=== PATIENT | female | born 1980 | race Caucasian/White ===

== ENCOUNTER 2017-04-30 11:08 | Inpatient (IN) | payer SELFPAY ==
[~2017-04-30] VITALS: Ht 162.6 cm; Wt 52.3 kg
[2017-04-30] VITALS (15 sets, daily range): BP systolic 114–159; BP diastolic 82–104; PULSE 114–154; RESP 15–32; TEMP 98.2–99.5; O2SAT 97–100
[2017-04-30] MEDS ORDERED: SODIUM CHLOR 0.9% 1000 ML INJ 1,000 ML IV SCH (11:24)
[2017-04-30] MEDS ORDERED: HYDROmorphone HCL PF 1 MG/ML VIAL IV PUSH ONE ×2 (11:30→15:00)
[2017-04-30] MEDS ORDERED: SODIUM CHLORIDE 0.9% FLUSH 10 ML FLUSH IV FLUSH PRN ×2 (11:30→14:15)
[2017-04-30] MEDS ORDERED: ONDANSETRON HCL 4 MG/2 ML VIAL IVP ONE (11:30)
--- NOTE | 2017-04-30 11:38 | PD ---
HPI Chief Complaint: abdominal pain and vomiting Time Seen by Provider: 11:18 Travel History International Travel<30 days: No Contact w/Intl Traveler<30days: No Traveled to known affect area: No History of Present Illness HPI This 37-year-old female is complaining of abdominal pain and vomiting. She was admitted to Hospital in [place] in March with what sounds like pancreatitis. He does not have any history of abdominal surgery. She was drinking at that time. She had stopped drinking for a while but the last couple of days and started drinking again. Last night around 3 AM she started having abdominal pain and vomiting. The pain she is having is fairly diffuse and goes to her back. She's had persistent vomiting. She says the pain is quite severe and persistent. She says she has not been eating well since she got out of the hospital in March. She has not been drinking until a couple of days ago [facility] Social History Alcohol Use: Yes Tobacco Use: No Substance Use: No Allergies-Medications (Allergen,Severity, Reaction): Coded Allergies: hydrocodone (Verified Allergy, Unknown, 04/30/17) Reported Meds & Prescriptions Reported Meds & Active Scripts Active Reported Lamotrigine 25 Mg Tab 25 Mg PO DAILY Synthroid (Levothyroxine Sodium) 50 Mcg Tab 50 Mcg PO DAILY Review of Systems General / Constitutional: No: Fever, Chills Eyes: No: Diploplia, Blurred Vision HENT: No: Headaches, Vertigo Cardiovascular: No: Chest Pain or Discomfort, Palpitations Respiratory: No: Cough, Shortness of Breath Gastrointestinal: Positive: Nausea, Vomiting, Abdominal Pain Genitourinary: No: Urgency, Frequency Musculoskeletal: No: Myalgias Neurologic: Positive: Weakness Endocrine: No: Heat Intolerance Hematologic/Lymphatic: No: Easy Bruising Physical Exam Narrative GENERAL: Thin chronically ill appearing female SKIN: Focused skin assessment warm/dry. HEAD: Atraumatic. Normocephalic. EYES: Pupils equal and round. No scleral icterus. No injection or drainage. ENT: No nasal bleeding or discharge. Mucous membranes pink and moist. NECK: Trachea midline. No JVD. CARDIOVASCULAR: Regular rate and rhythm. No murmur appreciated. RESPIRATORY: No accessory muscle use. Clear to auscultation. Breath sounds equal bilaterally. GASTROINTESTINAL: Abdomen soft, mild diffuse tenderness without guarding or rigidity nondistended. Hepatic and splenic margins not palpable. Bowel sounds are active MUSCULOSKELETAL: No obvious deformities. No clubbing. No cyanosis. No edema. NEUROLOGICAL: Awake and alert. No obvious cranial nerve deficits. Motor grossly within normal limits. Normal speech. PSYCHIATRIC: Appropriate mood and affect; insight and judgment normal. Data Data Last Documented VS Vital Signs Date Time Temp Pulse Resp B/P (MAP) Pulse Ox O2 Delivery O2 Flow Rate FiO2 04/30/17 13:09 132 20 156/99 (118) 100 Room Air 04/30/17 11:30 98.2 Orders Orders Complete Blood Count With Diff (04/30/17 11:24) Comprehensive Metabolic Panel (04/30/17 11:24) Lipase (04/30/17 11:24) Urinalysis - C+S If Indicated (04/30/17 11:24) Ct Abd/Pel W Iv Contrast(Rout) (04/30/17 11:24) Iv Access Insert/Monitor (04/30/17 11:24) Ecg Monitoring (04/30/17 11:24) Oximetry (04/30/17 11:24) Ondansetron Inj (Zofran Inj) (04/30/17 11:30) Sodium Chlor 0.9% 1000 Ml Inj (Ns 1000 M (04/30/17 11:24) Sodium Chloride 0.9% Flush (Ns Flush) (04/30/17 11:30) Hydromorphone Pf Inj (Dilaudid Pf Inj) (04/30/17 11:30) Lactic Acid (04/30/17 12:14) Beta Hydroxybutyrate (Acetone) (04/30/17 12:14) Sodium Chlor 0.9% 1000 Ml Inj (Ns 1000 M (04/30/17 12:30) Dext 5%-Nacl 0.9% 1000 Ml Inj (D5w-Ns 10 (04/30/17 12:30) Arterial Blood Gas (Abg) (04/30/17 13:07) Thiamine Inj (Thiamine Inj) (04/30/17 13:15) Iohexol 350 Inj (Omnipaque 350 Inj) (04/30/17 12:30) Ondansetron Inj (Zofran Inj) (04/30/17 13:30) Pantoprazole Inj (Protonix Inj) (04/30/17 13:30) Magnesium (Mg) (04/30/17 11:30) Drug Screen, Random Urine (04/30/17 14:09) Dext 5%-Nacl 0.9% 1000 Ml Inj (D5w-Ns 10 (04/30/17 14:15) Sodium Bicarbonate 8.4% Inj (Sodium Bica (04/30/17 14:15) Admit Order (Ed Use Only) (04/30/17 14:14) Labs Laboratory Tests Test 04/30/17 11:30 04/30/17 13:05 04/30/17 13:20 White Blood Count 13.1 TH/MM3 Red Blood Count 3.84 MIL/MM3 Hemoglobin 12.1 GM/DL Hematocrit 38.0 % Mean Corpuscular Volume 98.9 FL Mean Corpuscular Hemoglobin 31.5 PG Mean Corpuscular Hemoglobin Concent 31.8 % Red Cell Distribution Width 13.6 % Platelet Count 232 TH/MM3 Mean Platelet Volume 6.9 FL Neutrophils (%) (Auto) 86.6 % Lymphocytes (%) (Auto) 4.1 % Monocytes (%) (Auto) 7.7 % Eosinophils (%) (Auto) 0.1 % Basophils (%) (Auto) 1.5 % Neutrophils # (Auto) 11.4 TH/MM3 Lymphocytes # (Auto) 0.5 TH/MM3 Monocytes # (Auto) 1.0 TH/MM3 Eosinophils # (Auto) 0.0 TH/MM3 Basophils # (Auto) 0.2 TH/MM3 CBC Comment DIFF FINAL Differential Comment Urine Collection Type CLEAN CATCH Urine Color YELLOW Urine Turbidity CLEAR Urine pH 5.5 Urine Specific [place] 1.016 Urine Protein 30 mg/dL Urine Glucose (UA) NEG mg/dL Urine Ketones 80 OR GREATER mg/dL Urine Occult Blood TRACE Urine Nitrite NEG Urine Bilirubin NEG Urine Leukocyte Esterase NEG Urine RBC 0-3 /hpf Urine WBC 0-2 /hpf Urine Squamous Epithelial Cells 6-8 /hpf Urine Hyaline Casts 15-19 /lpf Microscopic Urinalysis Comment CULT NOT INDICATED Urine Collection Time 11:30 Blood Urea Nitrogen 5 MG/DL Creatinine 0.68 MG/DL Random Glucose 86 MG/DL Total Protein 8.9 GM/DL Albumin 4.3 GM/DL Calcium Level 9.2 MG/DL Magnesium Level 1.5 MG/DL Alkaline Phosphatase 150 U/L Aspartate Amino Transf (AST/SGOT) 285 U/L Alanine Aminotransferase (ALT/SGPT) 100 U/L Total Bilirubin 1.2 MG/DL Sodium Level 129 MEQ/L Potassium Level 3.7 MEQ/L Chloride Level 91 MEQ/L Carbon Dioxide Level 7.3 MEQ/L Anion Gap 31 MEQ/L Estimat Glomerular Filtration Rate 97 ML/MIN Lipase 327 U/L Urine Barbiturates Screen NEG Urine Amphetamines Screen NEG Urine Benzodiazepines Screen NEG Urine Cocaine Screen NEG Urine Cannabinoids Screen NEG B-Hydroxybutyrate 8.55 MMOL/L Lactic Acid Level 6.2 mmol/L Blood Gas Puncture Site LT RADIAL Blood Gas Patient Temperature 98.6 Blood Gas HCO3 6 mmol/L Blood Gas Base Excess -22.1 mmol/L Blood Gas Oxygen Saturation 94 % Arterial Blood pH 7.08 Arterial Blood Partial Pressure CO2 22 mmHG Arterial Blood Partial Pressure O2 118 mmHG Arterial Blood Oxygen Content 13.1 Vol % Arterial Blood Carboxyhemoglobin 1.4 % Arterial Blood Methemoglobin 1.4 % Blood Gas Hemoglobin 9.8 G/DL Oxygen Delivery Device ROOM AIR Blood Gas Inspired Oxygen 21 % [facility] Medical Decision Making Medical Screen Exam Complete: Yes Emergency Medical Condition: Yes Medical Record Reviewed: Yes Differential Diagnosis Differential includes pancreatitis, gastritis, gastroenteritis Narrative Course Patient has been given IV fluids and Zofran. Of note her anion gap was noted to be 31. Her beta hydroxybutyrate is 8.55. CT scan of the abdomen and pelvis does not show evidence of pancreatitis. She has steatosis of the liver. Her AST is elevated, lipase is normal. She has had intermittent vomiting in the ER. She has been given thiamine and D5 saline. This may represent alcoholic starvation ketosis she has been started on dextrose. Blood gas shows a pH of 7.07. She'll be given intravenous sodium bicarbonate. She will be admitted to intensive care unit Diagnosis Primary Impression: Alcoholic ketoacidosis Admitting Information Admitting Physician Requests: Admit Derrek Dougherty MD Apr 30, 2017 11:38
[2017-04-30 11:53] LABS: BLOOD, URINE TRACE (NEG); GLUCOSE,URINE NEG (NEG); KETONE, URINE 80 OR GREATER mg/dL (NEG); NITRITE,URINE NEG (NEG); PH, URINE 5.5 (5.0-8.5)
[2017-04-30 11:57] LABS: AUTOMATED NEUTROPHIL # 11.4 TH/MM3 (1.8-7.7); BASOPHIL # 0.2 TH/MM3 (0-0.2); BASOPHIL % 1.5 % (0.0-2.0); EOSINOPHIL % 0.1 % (0.0-4.0); LYMPH % 4.1 % (9.0-44.0); LYMPHOCYTE # 0.5 TH/MM3 (1.0-4.8); MEAN CELL VOLUME 98.9 FL (80.0-100.0); MEAN CORPUSCULAR HEMOGLOBIN 31.5 PG (27.0-34.0); MEAN CORPUSCULAR HGB CONC 31.8 % (32.0-36.0); MONO % 7.7 % (0.0-8.0); NEUT % 86.6 % (16.0-70.0); PLATELET COUNT 232 TH/MM3 (150-450); RED BLOOD COUNT 3.84 MIL/MM3 (4.00-5.30); RED CELL DISTRIBUTION WIDTH 13.6 % (11.6-17.2); WHITE BLOOD COUNT 13.1 TH/MM3 (4.0-11.0)
[2017-04-30 11:58] LABS: METHOD OF COLLECTION CLEAN CATCH; URINE COLOR YELLOW (YELLW/STRAW)
[2017-04-30 11:59] LABS: COMMENT (UR) CULT NOT INDICATED; CULTURE IF INDICATED CULT NOT INDICATED; HYALINE CAST, URINE 15-19 /lpf (RARE); RBC, URINE 0-3 /hpf (0-3); WBC, URINE 0-2 /hpf (0-5)
[2017-04-30 12:03] LABS: HEMO FLAGS DIFF FINAL
[2017-04-30 12:07] LABS: CHLORIDE 91 MEQ/L (98-107); POTASSIUM 3.7 MEQ/L (3.5-5.1); SODIUM (NA) 129 MEQ/L (136-145)
[2017-04-30 12:11] LABS: ANION GAP 31 MEQ/L (5-15); BICARBONATE 7.3 MEQ/L (21.0-32.0); BLOOD UREA NITROGEN 5 MG/DL (7-18)
[2017-04-30] MEDS ORDERED: LEVO.05 PO (12:13)
[2017-04-30] MEDS ORDERED: LAMO25TA PO (12:13)
[2017-04-30 12:14] LABS: ALT (GPT) 100 U/L (10-53); AST (GOT) 285 U/L (15-37); GLOMERULAR FILTRATION RATE 97 ML/MIN (>89)
[2017-04-30 12:16] LABS: TOTAL BILIRUBIN ADULT 1.2 MG/DL (0.2-1.0)
[2017-04-30 12:17] LABS: ALKALINE PHOSPHATASE 150 U/L (45-117)
[2017-04-30] MEDS ORDERED: IOHEXOL 350 MG/ML 10 ML VIAL (for RAD DIAG) IVCONTRAST ONE (12:30)
[2017-04-30] MEDS ORDERED: DEXT 5%-NACL 0.9% 1000 ML INJ 1,000 ML IV ONE ×3 (12:30→17:15)
[2017-04-30] MEDS ORDERED: SODIUM CHLOR 0.9% 1000 ML INJ 1,000 ML IV ONE (12:30)
--- NOTE | 2017-04-30 13:04 | RADRPT ---
EXAM DATE/TIME: 04/30/2017 12:35 [place] COMPARISON: No previous studies available for comparison. INDICATIONS : Abdominal pain and vomiting. IV CONTRAST: 71 cc Omnipaque 350 (iohexol) IV ORAL CONTRAST: No oral contrast ingested. RADIATION DOSE: 4.53 CTDIvol (mGy) MEDICAL HISTORY : Alcohol dependance. SURGICAL HISTORY : None. ENCOUNTER: Initial ACUITY: 1 day PAIN SCALE: 0/10 LOCATION: Bilateral middle abdominal and back. TECHNIQUE: Volumetric scanning of the abdomen and pelvis was performed. Using automated exposure control and ad justment of the mA and/or kV according to patient size, radiation dose was kept as low as reasonably achievable to obtain optimal diagnostic quality images. DICOM format image data is available electro nically for review and comparison. FINDINGS: LOWER LUNGS: The visualized lower lungs are clear. LIVER: Profound diffusely decreased hepatic density consistent with hepatic steatosis. Gallbladder is modera tely distended and unremarkable by CT. SPLEEN: Normal size without lesion. PANCREAS: Within normal limits. KIDNEYS: Normal in size and shape. Subcentimeter hypodense cystic lesion in the inferior pole of the right kid misty is too small to fully characterize. Otherwise, no significant mass, stone, or hydronephrosis. ADRENAL GLANDS: Within normal limits. VASCULAR: There is no aortic aneurysm. BOWEL/MESENTERY: The stomach, small bowel, and colon demonstrate no acute abnormality. Appendix is not directly visua lized. However, there is no significant pericecal inflammatory change or adenopathy. There is no free intraperitoneal air or fluid. ABDOMINAL WALL: Within normal limits. RETROPERITONEUM: There is no lymphadenopathy. BLADDER: No wall thickening or mass. REPRODUCTIVE: Within normal limits. INGUINAL: There is no lymphadenopathy or hernia. MUSCULOSKELETAL: Within normal limits for patient age. CONCLUSION: 1. Appendix is not directly visualized,. However, there are no secondary findings for appendicitis. 2. Pancreas is unremarkable by CT. However, normal CT appearance of the pancreas does not exclude mcdowell creatitis. 3. Profound diffusely decreased hepatic density consistent with history of alcohol abuse/hepatic stea tosis. Miguel Ibrahim MD on April 30, 2017 at 12:58 Board Certified Radiologist. This report was verified electronically.
[2017-04-30] MEDS ORDERED: THIAMINE INJ 100 MG in SODIUM CHLORIDE 0.9% INJ 100 ML IV ONE (13:15)
[2017-04-30 13:27] LABS: BLOOD GAS BASE EXCESS -22.1 mmol/L (-2-2); BLOOD GAS CARBOXYHEMOGLOBIN 1.4 % (0-4); BLOOD GAS HCO3 6 mmol/L (22-26); BLOOD GAS METHEMOGLOBIN 1.4 % (0-2); BLOOD GAS O2 HGB SATURATION 94 % (90-100); BLOOD GAS OXYGEN CONTENT 13.1 Vol % (12.0-20.0); BLOOD GAS PCO2 22 mmHG (38-42); BLOOD GAS PO2 118 mmHG (61-120); BLOOD GAS TOTAL HGB 9.8 G/DL (12.0-16.0); TEMP CORR TO 98.6
[2017-04-30 13:28] LABS: CRITICAL VALUE YES; DRAW SITE LT RADIAL; FIO2 21 %; NUMBER OF ARTERIAL PUNCTURES 1; OXYGEN DEVICE ROOM AIR; STAT YES; ULNAR PULSE PRESENT
[2017-04-30] MEDS ORDERED: ONDANSETRON HCL 4 MG/2 ML VIAL IV PUSH ONE (13:30)
[2017-04-30] MEDS ORDERED: PANTOPRAZOLE SODIUM 40 MG VIAL IV PUSH ONE (13:30)
[2017-04-30 14:04] LABS: MAGNESIUM 1.5 MG/DL (1.5-2.5)
[2017-04-30] MEDS ORDERED: LACTULOSE SYRUP 20 GM/30 ML CUP PO PRN (14:15)
[2017-04-30] MEDS ORDERED: MISCELLANEOUS NURSING INFORMATION XX SCH (14:15)
[2017-04-30] MEDS ORDERED: LORazepam 2 MG/ML VIAL IV PUSH PRN (14:15)
[2017-04-30] MEDS ORDERED: BISACODYL 10 MG SUPP RECTAL PRN (14:15)
[2017-04-30] MEDS ORDERED: DOCUSATE SODIUM 50 MG/SENNA 8.6 MG TAB PO PRN (14:15)
[2017-04-30] MEDS ORDERED: MAGNESIUM HYDROXIDE SUSP 30 ML CUP PO PRN (14:15)
[2017-04-30] MEDS ORDERED: SENNOSIDES 8.6 MG TAB PO PRN (14:15)
[2017-04-30] MEDS ORDERED: SODIUM BICARBONATE 8.4% INJ 50 MEQ/50 ML SYR IV PUSH ONE (14:15)
[2017-04-30] MEDS ORDERED: RESP: ALBUTEROL 2.5 MG/IPRATROPIUM 0.5 MG NEB (PRN) INH (14:15)
[2017-04-30] MEDS ORDERED: CHLORHEXIDINE GLUCONATE 2 % 1 PACK (2 CLOTHS) TOP PRN (14:15)
[2017-04-30] MEDS ORDERED: PROCHLORPERAZINE INJ 10 MG/2 ML VIAL IV PUSH ONE (14:30)
[2017-04-30] MEDS ORDERED: SODIUM BICARBONATE 8.4% SOLN 50 MEQ/50 ML VIAL IV ONE (15:15)
[2017-04-30] MEDS: HEPARIN SODIUM - SQ 10,000 UNITS/ML VIAL SQ SCH (15:36)
[2017-04-30 16:09] LABS: BLOOD GAS BASE EXCESS -9.9 mmol/L (-2-2); BLOOD GAS CARBOXYHEMOGLOBIN 1.9 % (0-4); BLOOD GAS HCO3 15 mmol/L (22-26); BLOOD GAS METHEMOGLOBIN 1.5 % (0-2); BLOOD GAS O2 HGB SATURATION 94 % (90-100); BLOOD GAS OXYGEN CONTENT 13.2 Vol % (12.0-20.0); BLOOD GAS PCO2 30 mmHg (38-42); BLOOD GAS PO2 95 mmHg (61-120); BLOOD GAS TOTAL HGB 9.9 G/DL (12.0-16.0)
[2017-04-30 16:10] LABS: CRITICAL VALUE YES; DRAW SITE LT RADIAL; FIO2 21 %; NUMBER OF ARTERIAL PUNCTURES 1; OXYGEN DEVICE RA; STAT NO; ULNAR PULSE PRESENT
[2017-04-30] MEDS: ONDANSETRON HCL 4 MG/2 ML VIAL IV PUSH PRN (17:03)
--- NOTE | 2017-04-30 17:06 | HHI.HP ---
HPI Service Critical Care Medicine Primary Care Physician No Primary Care Physician Admission Diagnosis METABOLIC ACIDOSIS Diagnosis: Travel History International Travel<30 Days: No Contact w/Intl Traveler <30 Da: No Traveled to Known Affected Are: No History of Present Illness History of Present Illness HPI This 37-year-old female presented with complaints of abdominal pain, nausea and vomiting which started at 3 AM this morning for which she was brought to the ER. Patient has a history of alcohol abuse and was admitted to Hospital in [place] in March and was told she had pancreatitis. She does not have any history of abdominal surgery. She had stopped drinking for a while but the last couple of days started drinking again. This morning around 3 AM she started having abdominal pain and vomiting. The pain she is having is fairly diffuse and goes to her back. She's had persistent vomiting. She says the pain is quite severe and persistent. She says she has not been eating well since she got out of the hospital in March. She has not been drinking until a couple of days ago. Patient was evaluated in the ER and was noted to be tachycardic with heart rate in the 130s with normal blood pressure. She underwent the CT of her abdomen pelvis which was unremarkable except for steatosis. She did have significant metabolic acidosis and positive ketones in the urine as well as elevated lactic acid. She was accepted for admission to the ICU by critical care medicine service in view of severe metabolic acidosis with ABG revealing pH of 7.08 PCO2 22 PO2 118. She was given 1 L when S bolus followed by D5 and S2 liters and 2 A of bicarbonate in the ER after discussion with ER physician. I evaluated the patient following her arrival to the ICU. She was resting in bed at the time and did not appear to be in any severe distress. History PFSH Social History Alcohol Use: Yes Tobacco Use: No Substance Use: No Allergies-Medications Allergies-Medications (Allergen,Severity, Reaction): Coded Allergies: hydrocodone (Verified Allergy, Unknown, 04/30/17) Reported Meds & Prescriptions Reported Meds & Active Scripts Active Reported Lamotrigine 25 Mg Tab 25 Mg PO DAILY Synthroid (Levothyroxine Sodium) 50 Mcg Tab 50 Mcg PO DAILY ROS Review of Systems General / Constitutional: No: Fever, Chills Eyes: No: Diploplia, Blurred Vision HENT: No: Headaches, Vertigo Cardiovascular: No: Chest Pain or Discomfort, Palpitations Respiratory: No: Cough, Shortness of Breath Gastrointestinal: Positive: Nausea, Vomiting, Abdominal Pain. Denies any melena or rectal bleeding or hematemesis. Genitourinary: No: Urgency, Frequency Musculoskeletal: No: Myalgias Neurologic: Positive: Weakness Endocrine: No: Heat Intolerance Hematologic/Lymphatic: No: Easy Bruising Physical Exam Vital Signs Vital Signs Date Time Temp Pulse Resp B/P (MAP) Pulse Ox O2 Delivery O2 Flow Rate FiO2 04/30/17 16:05 120 16 144/96 (112) 04/30/17 16:05 120 04/30/17 16:03 120 04/30/17 16:03 132 20 147/102 (117) 04/30/17 16:03 99.0 120 18 147/102 (117) 97 04/30/17 16:03 132 04/30/17 15:59 120 18 151/99 (116) 98 04/30/17 15:20 129 18 157/104 (121) 100 Room Air 04/30/17 14:30 129 20 159/101 (120) 99 Room Air 04/30/17 13:09 132 20 156/99 (118) 100 Room Air 04/30/17 12:25 133 20 140/90 (107) 98 Room Air 04/30/17 11:30 98 Room Air 04/30/17 11:30 98.2 140 20 153/90 (111) 99 Physical Exam Narrative GENERAL: Thin chronically ill appearing female SKIN: Focused skin assessment warm/dry. HEAD: Atraumatic. Normocephalic. EYES: Pupils equal and round. No scleral icterus. No injection or drainage. ENT: No nasal bleeding or discharge. Mucous membranes pink and moist. NECK: Trachea midline. No JVD. CARDIOVASCULAR: Regular rate and rhythm. No murmur appreciated. RESPIRATORY: No accessory muscle use. Clear to auscultation. Breath sounds equal bilaterally. GASTROINTESTINAL: Abdomen soft, mild diffuse tenderness without guarding or rigidity nondistended. Hepatic and splenic margins not palpable. Bowel sounds are active MUSCULOSKELETAL: No obvious deformities. No clubbing. No cyanosis. No edema. NEUROLOGICAL: Awake and alert. No obvious cranial nerve deficits. Motor grossly within normal limits. Normal speech. PSYCHIATRIC: Appropriate mood and affect; insight and judgment normal. Laboratory Laboratory Tests Test 04/30/17 11:30 04/30/17 13:05 04/30/17 13:20 04/30/17 16:03 White Blood Count 13.1 Red Blood Count 3.84 Hemoglobin 12.1 Hematocrit 38.0 Mean Corpuscular Volume 98.9 Mean Corpuscular Hemoglobin 31.5 Mean Corpuscular Hemoglobin Concent 31.8 Red Cell Distribution Width 13.6 Platelet Count 232 Mean Platelet Volume 6.9 Neutrophils (%) (Auto) 86.6 Lymphocytes (%) (Auto) 4.1 Monocytes (%) (Auto) 7.7 Eosinophils (%) (Auto) 0.1 Basophils (%) (Auto) 1.5 Neutrophils # (Auto) 11.4 Lymphocytes # (Auto) 0.5 Monocytes # (Auto) 1.0 Eosinophils # (Auto) 0.0 Basophils # (Auto) 0.2 CBC Comment DIFF FINAL Differential Comment Urine Collection Type CLEAN CATCH Urine Color YELLOW Urine Turbidity CLEAR Urine pH 5.5 Urine Specific [place] 1.016 Urine Protein 30 Urine Glucose (UA) NEG Urine Ketones 80 OR GREATER Urine Occult Blood TRACE Urine Nitrite NEG Urine Bilirubin NEG Urine Leukocyte Esterase NEG Urine RBC 0-3 Urine WBC 0-2 Urine Squamous Epithelial Cells 6-8 Urine Hyaline Casts 15-19 Microscopic Urinalysis Comment CULT NOT INDICATED Urine Collection Time 11:30 Blood Urea Nitrogen 5 Creatinine 0.68 Random Glucose 86 Total Protein 8.9 Albumin 4.3 Calcium Level 9.2 Magnesium Level 1.5 Alkaline Phosphatase 150 Aspartate Amino Transf (AST/SGOT) 285 Alanine Aminotransferase (ALT/SGPT) 100 Total Bilirubin 1.2 Sodium Level 129 Potassium Level 3.7 Chloride Level 91 Carbon Dioxide Level 7.3 Anion Gap 31 Estimat Glomerular Filtration Rate 97 Lipase 327 Urine Opiates Screen NEG Urine Barbiturates Screen NEG Urine Amphetamines Screen NEG Urine Benzodiazepines Screen NEG Urine Cocaine Screen NEG Urine Cannabinoids Screen NEG B-Hydroxybutyrate 8.55 Lactic Acid Level 6.2 Blood Gas Puncture Site LT RADIAL LT RADIAL Blood Gas Patient Temperature 98.6 37.0 Blood Gas HCO3 6 15 Blood Gas Base Excess -22.1 -9.9 Blood Gas Oxygen Saturation 94 94 Arterial Blood pH 7.08 7.32 Arterial Blood Partial Pressure CO2 22 30 Arterial Blood Partial Pressure O2 118 95 Arterial Blood Oxygen Content 13.1 13.2 Arterial Blood Carboxyhemoglobin 1.4 1.9 Arterial Blood Methemoglobin 1.4 1.5 Blood Gas Hemoglobin 9.8 9.9 Oxygen Delivery Device ROOM AIR RA Blood Gas Inspired Oxygen 21 21 Result Diagram: 04/30/17 1130 04/30/17 1130 Imaging Laboratory Tests Test 04/30/17 11:30 04/30/17 13:05 04/30/17 13:20 04/30/17 16:03 White Blood Count 13.1 TH/MM3 Red Blood Count 3.84 MIL/MM3 Hemoglobin 12.1 GM/DL Hematocrit 38.0 % Mean Corpuscular Volume 98.9 FL Mean Corpuscular Hemoglobin 31.5 PG Mean Corpuscular Hemoglobin Concent 31.8 % Red Cell Distribution Width 13.6 % Platelet Count 232 TH/MM3 Mean Platelet Volume 6.9 FL Neutrophils (%) (Auto) 86.6 % Lymphocytes (%) (Auto) 4.1 % Monocytes (%) (Auto) 7.7 % Eosinophils (%) (Auto) 0.1 % Basophils (%) (Auto) 1.5 % Neutrophils # (Auto) 11.4 TH/MM3 Lymphocytes # (Auto) 0.5 TH/MM3 Monocytes # (Auto) 1.0 TH/MM3 Eosinophils # (Auto) 0.0 TH/MM3 Basophils # (Auto) 0.2 TH/MM3 CBC Comment DIFF FINAL Differential Comment Urine Collection Type CLEAN CATCH Urine Color YELLOW Urine Turbidity CLEAR Urine pH 5.5 Urine Specific [place] 1.016 Urine Protein 30 mg/dL Urine Glucose (UA) NEG mg/dL Urine Ketones 80 OR GREATER mg/dL Urine Occult Blood TRACE Urine Nitrite NEG Urine Bilirubin NEG Urine Leukocyte Esterase NEG Urine RBC 0-3 /hpf Urine WBC 0-2 /hpf Urine Squamous Epithelial Cells 6-8 /hpf Urine Hyaline Casts 15-19 /lpf Microscopic Urinalysis Comment CULT NOT INDICATED Urine Collection Time 11:30 Blood Urea Nitrogen 5 MG/DL Creatinine 0.68 MG/DL Random Glucose 86 MG/DL Total Protein 8.9 GM/DL Albumin 4.3 GM/DL Calcium Level 9.2 MG/DL Magnesium Level 1.5 MG/DL Alkaline Phosphatase 150 U/L Aspartate Amino Transf (AST/SGOT) 285 U/L Alanine Aminotransferase (ALT/SGPT) 100 U/L Total Bilirubin 1.2 MG/DL Sodium Level 129 MEQ/L Potassium Level 3.7 MEQ/L Chloride Level 91 MEQ/L Carbon Dioxide Level 7.3 MEQ/L Anion Gap 31 MEQ/L Estimat Glomerular Filtration Rate 97 ML/MIN Lipase 327 U/L Urine Opiates Screen NEG Urine Barbiturates Screen NEG Urine Amphetamines Screen NEG Urine Benzodiazepines Screen NEG Urine Cocaine Screen NEG Urine Cannabinoids Screen NEG B-Hydroxybutyrate 8.55 MMOL/L Lactic Acid Level 6.2 mmol/L Blood Gas Puncture Site LT RADIAL LT RADIAL Blood Gas Patient Temperature 98.6 37.0 Blood Gas HCO3 6 mmol/L 15 mmol/L Blood Gas Base Excess -22.1 mmol/L -9.9 mmol/L Blood Gas Oxygen Saturation 94 % 94 % Arterial Blood pH 7.08 7.32 Arterial Blood Partial Pressure CO2 22 mmHG 30 mmHg Arterial Blood Partial Pressure O2 118 mmHG 95 mmHg Arterial Blood Oxygen Content 13.1 Vol % 13.2 Vol % Arterial Blood Carboxyhemoglobin 1.4 % 1.9 % Arterial Blood Methemoglobin 1.4 % 1.5 % Blood Gas Hemoglobin 9.8 G/DL 9.9 G/DL Oxygen Delivery Device ROOM AIR RA Blood Gas Inspired Oxygen 21 % 21 % Caprini VTE Risk Assessment Caprini VTE Risk Assessment: No/Low Risk (score <= 1) Caprini Risk Assessment Model Point Value = 1 Point Value = 2 Point Value = 3 Point Value = 5 Age 41-60 Minor surgery BMI > 25 kg/m2 Swollen legs Varicose veins or History of unexplained or recurrent spontaneous Oral contraceptives or hormone replacement Sepsis (< 1 month) Serious lung disease, including pneumonia (< 1 month) Abnormal pulmonary function Acute myocardial infarction Congestive heart failure (< 1 month) History of inflammatory bowel disease Medical patient at bed rest Age 61-74 Arthroscopic surgery Major open surgery (> 45 min) Laparoscopic surgery (> 45 min) Malignancy Confined to bed (> 72 hours) Immobilizing plaster cast Central venous access Age >= 75 History of VTE Family history of VTE Factor V Leiden Prothrombin [id number] Lupus anticoagulant Anticardiolipin antibodies Elevated serum homocysteine Heparin-induced thrombocytopenia Other congenital or acquired thrombophilia Stroke (< 1 month) Elective arthroplasty Hip, pelvis, or leg fracture Acute spinal cord injury (< 1 month) Prophylaxis Regimen Total Risk Factor Score Risk Level Prophylaxis Regimen 0-1 Low Early ambulation 2 Moderate Order ONE of the following: *Sequential Compression Device (SCD) *Heparin 5000 units SQ BID 3-4 Higher Order ONE of the following medications: *Heparin 5000 units SQ TID *Enoxaparin/Lovenox 40 mg SQ daily (WT < 150 kg, CrCl > 30 mL/min) *Enoxaparin/Lovenox 30 mg SQ daily (WT < 150 kg, CrCl > 10-29 mL/min) *Enoxaparin/Lovenox 30 mg SQ BID (WT < 150 kg, CrCl > 30 mL/min) AND/OR *Sequential Compression Device (SCD) 5 or more Highest Order ONE of the following medications: *Heparin 5000 units SQ TID (Preferred with Epidurals) *Enoxaparin/Lovenox 40 mg SQ daily (WT < 150 kg, CrCl > 30 mL/min) *Enoxaparin/Lovenox 30 mg SQ daily (WT < 150 kg, CrCl > 10-29 mL/min) *Enoxaparin/Lovenox 30 mg SQ BID (WT < 150 kg, CrCl > 30 mL/min) AND *Sequential Compression Device (SCD) Assessment and Plan Assessment and Plan 37-year-old female with: Metabolic acidosis with ketoacidosis secondary to starvation/alcohol as well as lactic acidosis Dehydration Alcohol-induced gastritis Elevated LFTs with alcoholic hepatitis Hyponatremia Plan: Neuro: Awake and alert. Follow neuro status. Avoid sedatives and narcotics. Continue by mouth thiamine. Cardiovascular: Receive 3 L fluid bolus earlier. Continue IV fluids. Watch for hypotension. Pulmonary: Supplemental O2 as needed. GI/liver: Advance by mouth diet as tolerated. Zofran when necessary for nausea and vomiting. CT abdomen pelvis did not reveal any evidence of pancreatitis. GI consulted for elevated LFTs and nausea vomiting abdominal pain. Renal/: IV hydration, strict intake output, monitor and replete electrolytes, follow BUN/creatinine. Repeat ABG much improved with pH 7.32 PCO2 29.7 PO2 95.4 with bicarbonate 14.9. ID: No antibiotics at this time. Heme: Follow CBC Prophylaxis: PPI/SCDs. Subcutaneous heparin. Early ambulation. We'll continue to follow for critical care. Fernando Helms MD Apr 30, 2017 17:05
[2017-04-30] MEDS: D5-1/2 NS + KCL 20 MEQ INJ 1,000 ML IV SCH ×3 (17:07→20:18)
[2017-04-30] MEDS: SODIUM CHLORIDE 0.9% FLUSH 10 ML FLUSH IV FLUSH SCH (19:37)
[2017-04-30 21:31] LABS: POTASSIUM 3.4 MEQ/L (3.5-5.1)
[2017-04-30 21:40] LABS: BICARBONATE 21.1 MEQ/L (21.0-32.0)
[2017-04-30 22:51] LABS: CALCIUM-PROTEIN CORRECTED 7.2 MG/DL (8.5-10.1)
[2017-05-01] VITALS (14 sets, daily range): BP systolic 108–128; BP diastolic 68–92; PULSE 86–112; RESP 16–23; TEMP 97.8–99.7; O2SAT 98–100
[2017-05-01] MEDS: D5-1/2 NS + KCL 20 MEQ INJ 1,000 ML IV SCH ×3 (01:00→20:20)
[2017-05-01] MEDS: CHLORHEXIDINE GLUCONATE 2 % 1 PACK (2 CLOTHS) TOP SCH (03:02)
[2017-05-01] MEDS: HEPARIN SODIUM - SQ 10,000 UNITS/ML VIAL SQ SCH ×2 (03:02→13:22)
[2017-05-01 05:54] LABS: AUTOMATED NEUTROPHIL # 5.8 TH/MM3 (1.8-7.7); BASOPHIL # 0.2 TH/MM3 (0-0.2); BASOPHIL % 2.1 % (0.0-2.0); EOSINOPHIL % 0.2 % (0.0-4.0); HEMATOCRIT 29.9 % (35.0-46.0); HEMO FLAGS DIFF FINAL; LYMPH % 11.5 % (9.0-44.0); LYMPHOCYTE # 0.9 TH/MM3 (1.0-4.8); MEAN CELL VOLUME 95.4 FL (80.0-100.0); MEAN CORPUSCULAR HGB CONC 32.5 % (32.0-36.0); MONO % 8.7 % (0.0-8.0); NEUT % 77.5 % (16.0-70.0); PLATELET COUNT 156 TH/MM3 (150-450); RED BLOOD COUNT 3.14 MIL/MM3 (4.00-5.30); RED CELL DISTRIBUTION WIDTH 13.1 % (11.6-17.2); WHITE BLOOD COUNT 7.6 TH/MM3 (4.0-11.0)
[2017-05-01 06:07] LABS: CHLORIDE 100 MEQ/L (98-107); POTASSIUM 3.2 MEQ/L (3.5-5.1); SODIUM (NA) 135 MEQ/L (136-145)
[2017-05-01 06:26] LABS: ALKALINE PHOSPHATASE 98 U/L (45-117); ALT (GPT) 66 U/L (10-53); ANION GAP 9 MEQ/L (5-15); AST (GOT) 145 U/L (15-37); BLOOD UREA NITROGEN 1 MG/DL (7-18); GLOMERULAR FILTRATION RATE 130 ML/MIN (>89); TOTAL BILIRUBIN ADULT 0.8 MG/DL (0.2-1.0)
[2017-05-01] MEDS ORDERED: POTASSIUM PHOSPHATE MONOBASIC 500 MG TAB PO PRN (07:00)
[2017-05-01] MEDS ORDERED: POTASSIUM CHLOR 20 MEQ PREMIX 100 ML IV PRN ×2 (07:00)
[2017-05-01] MEDS ORDERED: MAGNESIUM SULFATE INJ 4 GM in SODIUM CHLORIDE 0.9% INJ 92 ML IV PRN (07:00)
[2017-05-01] MEDS ORDERED: SODIUM CHLOR 0.9% IV ONE (07:00)
[2017-05-01] MEDS ORDERED: SODIUM PHOSPHATE INJ 30 MMOL in SODIUM CHLOR 0.9% 250 ML INJ 240 ML IV PRN (07:00)
[2017-05-01] MEDS ORDERED: MAGNESIUM OXIDE 400 MG TAB PO PRN (07:00)
[2017-05-01] MEDS ORDERED: POTASSIUM PHOSPHATE INJ 30 MMOL in SODIUM CHLOR 0.9% 250 ML INJ 250 ML IV PRN (07:00)
[2017-05-01] MEDS ORDERED: POTASSIUM PHOSPHATE IV ONE (07:00)
[2017-05-01] MEDS ORDERED: POTASSIUM PHOSPHATE MONOBASIC 500 MG TAB PO/TUBE PRN (07:00)
[2017-05-01] MEDS ORDERED: POTASSIUM CHLOR 40 MEQ PREMIX 100 ML IV PRN ×2 (07:00)
[2017-05-01] MEDS ORDERED: MAGNESIUM SULFATE INJ 2 GM in SODIUM CHLORIDE 0.9% INJ 96 ML IV PRN (07:00)
[2017-05-01] MEDS ORDERED: POTASSIUM CHLORIDE 25 MEQ EFFERVESCENT TAB PO PRN (07:00)
--- NOTE | 2017-05-01 07:00 | HHI.CCPN ---
Subjective Remarks/Hospital Course 04/30: This 37-year-old female presented with complaints of abdominal pain, nausea and vomiting which started at 3 AM this morning for which she was brought to the ER. Patient has a history of alcohol abuse and was admitted to Hospital in [place] in March and was told she had pancreatitis. She does not have any history of abdominal surgery. She had stopped drinking for a while but the last couple of days started drinking again. This morning around 3 AM she started having abdominal pain and vomiting. The pain she is having is fairly diffuse and goes to her back. She's had persistent vomiting. She says the pain is quite severe and persistent. She says she has not been eating well since she got out of the hospital in March. She has not been drinking until a couple of days ago. Patient was evaluated in the ER and was noted to be tachycardic with heart rate in the 130s with normal blood pressure. She underwent the CT of her abdomen pelvis which was unremarkable except for steatosis. She did have significant metabolic acidosis and positive ketones in the urine as well as elevated lactic acid. She was accepted for admission to the ICU by critical care medicine service in view of severe metabolic acidosis with ABG revealing pH of 7.08 PCO2 22 PO2 118. She was given 1 L when S bolus followed by D5 and S2 liters and 2 A of bicarbonate in the ER after discussion with ER physician. I evaluated the patient following her arrival to the ICU. She was resting in bed at the time and did not appear to be in any severe distress. 05/01: Had some nausea overnight. Has not had any by mouth intake yet. Heart rate in the 100s. No hypotension. No melena or rectal bleeding overnight. TSH came back low hence ordered free T3 and T4 to evaluate for hyperthyroidism. Has had good urine output overnight per [employer]. She is resting in bed comfortably at the time of my evaluation not in any acute distress. Her glucose was 300 last night however this was after 1 L D5NS and I do not think she is diabetic. Metabolic acidosis seems to have resolved with D5 suggesting alcoholic/starvation ketoacidosis. Objective Vital Signs Date Time Temp Pulse Resp B/P (MAP) Pulse Ox O2 Delivery O2 Flow Rate FiO2 05/01/17 06:00 96 23 128/92 (104) 05/01/17 04:00 98.3 05/01/17 00:00 98 04/30/17 15:20 Room Air Intake and Output 05/01/17 05/01/17 05/02/17 08:00 16:00 00:00 Intake Total 1676 ml Output Total 1850 ml Balance -174 ml Result Diagram: 05/01/17 0540 05/01/17 0540 Other Results Laboratory Tests Test 04/30/17 11:30 04/30/17 13:05 04/30/17 13:20 04/30/17 16:03 White Blood Count 13.1 TH/MM3 Red Blood Count 3.84 MIL/MM3 Hemoglobin 12.1 GM/DL Hematocrit 38.0 % Mean Corpuscular Volume 98.9 FL Mean Corpuscular Hemoglobin 31.5 PG Mean Corpuscular Hemoglobin Concent 31.8 % Red Cell Distribution Width 13.6 % Platelet Count 232 TH/MM3 Mean Platelet Volume 6.9 FL Neutrophils (%) (Auto) 86.6 % Lymphocytes (%) (Auto) 4.1 % Monocytes (%) (Auto) 7.7 % Eosinophils (%) (Auto) 0.1 % Basophils (%) (Auto) 1.5 % Neutrophils # (Auto) 11.4 TH/MM3 Lymphocytes # (Auto) 0.5 TH/MM3 Monocytes # (Auto) 1.0 TH/MM3 Eosinophils # (Auto) 0.0 TH/MM3 Basophils # (Auto) 0.2 TH/MM3 CBC Comment DIFF FINAL Differential Comment Urine Collection Type CLEAN CATCH Urine Color YELLOW Urine Turbidity CLEAR Urine pH 5.5 Urine Specific [place] 1.016 Urine Protein 30 mg/dL Urine Glucose (UA) NEG mg/dL Urine Ketones 80 OR GREATER mg/dL Urine Occult Blood TRACE Urine Nitrite NEG Urine Bilirubin NEG Urine Leukocyte Esterase NEG Urine RBC 0-3 /hpf Urine WBC 0-2 /hpf Urine Squamous Epithelial Cells 6-8 /hpf Urine Hyaline Casts 15-19 /lpf Microscopic Urinalysis Comment CULT NOT INDICATED Urine Collection Time 11:30 Blood Urea Nitrogen 5 MG/DL Creatinine 0.68 MG/DL Random Glucose 86 MG/DL Total Protein 8.9 GM/DL Albumin 4.3 GM/DL Calcium Level 9.2 MG/DL Magnesium Level 1.5 MG/DL Alkaline Phosphatase 150 U/L Aspartate Amino Transf (AST/SGOT) 285 U/L Alanine Aminotransferase (ALT/SGPT) 100 U/L Total Bilirubin 1.2 MG/DL Sodium Level 129 MEQ/L Potassium Level 3.7 MEQ/L Chloride Level 91 MEQ/L Carbon Dioxide Level 7.3 MEQ/L Anion Gap 31 MEQ/L Estimat Glomerular Filtration Rate 97 ML/MIN Lipase 327 U/L Thyroid Stimulating Hormone 3rd Gen 0.158 uIU/ML Urine Opiates Screen NEG Urine Barbiturates Screen NEG Urine Amphetamines Screen NEG Urine Benzodiazepines Screen NEG Urine Cocaine Screen NEG Urine Cannabinoids Screen NEG B-Hydroxybutyrate 8.55 MMOL/L Lactic Acid Level 6.2 mmol/L Blood Gas Puncture Site LT RADIAL LT RADIAL Blood Gas Patient Temperature 98.6 37.0 Blood Gas HCO3 6 mmol/L 15 mmol/L Blood Gas Base Excess -22.1 mmol/L -9.9 mmol/L Blood Gas Oxygen Saturation 94 % 94 % Arterial Blood pH 7.08 7.32 Arterial Blood Partial Pressure CO2 22 mmHG 30 mmHg Arterial Blood Partial Pressure O2 118 mmHG 95 mmHg Arterial Blood Oxygen Content 13.1 Vol % 13.2 Vol % Arterial Blood Carboxyhemoglobin 1.4 % 1.9 % Arterial Blood Methemoglobin 1.4 % 1.5 % Blood Gas Hemoglobin 9.8 G/DL 9.9 G/DL Oxygen Delivery Device ROOM AIR RA Blood Gas Inspired Oxygen 21 % 21 % Test 04/30/17 17:02 04/30/17 21:05 05/01/17 05:40 Nasal Screen MRSA (PCR) MRSA NOT DETECTED Blood Urea Nitrogen 2 MG/DL 1 MG/DL Creatinine 0.74 MG/DL 0.53 MG/DL Random Glucose 302 MG/DL 134 MG/DL Total Protein 6.9 GM/DL 6.9 GM/DL Calcium Level 7.1 MG/DL 7.8 MG/DL Sodium Level 130 MEQ/L 135 MEQ/L Potassium Level 3.4 MEQ/L 3.2 MEQ/L Chloride Level 97 MEQ/L 100 MEQ/L Carbon Dioxide Level 21.1 MEQ/L 26.0 MEQ/L Anion Gap 12 MEQ/L 9 MEQ/L Estimat Glomerular Filtration Rate 88 ML/MIN 130 ML/MIN Lactic Acid Level 2.1 mmol/L 1.3 mmol/L Protein Corrected Calcium 7.2 MG/DL White Blood Count 7.6 TH/MM3 Red Blood Count 3.14 MIL/MM3 Hemoglobin 9.7 GM/DL Hematocrit 29.9 % Mean Corpuscular Volume 95.4 FL Mean Corpuscular Hemoglobin 31.0 PG Mean Corpuscular Hemoglobin Concent 32.5 % Red Cell Distribution Width 13.1 % Platelet Count 156 TH/MM3 Mean Platelet Volume 6.9 FL Neutrophils (%) (Auto) 77.5 % Lymphocytes (%) (Auto) 11.5 % Monocytes (%) (Auto) 8.7 % Eosinophils (%) (Auto) 0.2 % Basophils (%) (Auto) 2.1 % Neutrophils # (Auto) 5.8 TH/MM3 Lymphocytes # (Auto) 0.9 TH/MM3 Monocytes # (Auto) 0.7 TH/MM3 Eosinophils # (Auto) 0.0 TH/MM3 Basophils # (Auto) 0.2 TH/MM3 CBC Comment DIFF FINAL Differential Comment Albumin 3.3 GM/DL Phosphorus Level 0.8 MG/DL Magnesium Level 1.0 MG/DL Alkaline Phosphatase 98 U/L Aspartate Amino Transf (AST/SGOT) 145 U/L Alanine Aminotransferase (ALT/SGPT) 66 U/L Total Bilirubin 0.8 MG/DL Imaging Last Impressions Abdomen/Pelvis CT 04/30/17 1124 Signed Impressions: Service Date/Time: Tuesday, April 30, 2017 12:35 - CONCLUSION: 1. Appendix is not directly visualized,. However, there are no secondary findings for appendicitis. 2. Pancreas is unremarkable by CT. However, normal CT appearance of the pancreas does not exclude pancreatitis. 3. Profound diffusely decreased hepatic density consistent with history of alcohol abuse/hepatic steatosis. Miguel Ibrahim MD Objective Remarks Narrative GENERAL: Thin chronically ill appearing female SKIN: Focused skin assessment warm/dry. HEAD: Atraumatic. Normocephalic. EYES: Pupils equal and round. No pallor, no icterus. No injection or drainage. ENT: No nasal bleeding or discharge. Mucous membranes pink and moist. NECK: Trachea midline. No JVD. CARDIOVASCULAR: Regular rate and rhythm. No murmur appreciated. RESPIRATORY: No accessory muscle use. Clear to auscultation. Breath sounds equal bilaterally. GASTROINTESTINAL: Abdomen soft, nontender, hepatic and splenic margins not palpable. Bowel sounds are active MUSCULOSKELETAL: No obvious deformities. No clubbing. No cyanosis. No edema. NEUROLOGICAL: Awake and alert. No obvious cranial nerve deficits. Motor grossly within normal limits. Normal speech. PSYCHIATRIC: Appropriate mood and affect; insight and judgment normal. A/P Assessment and Plan 37-year-old female with: Metabolic acidosis with ketoacidosis secondary to starvation/alcohol as well as lactic acidosis Dehydration Alcohol-induced gastritis Elevated LFTs with alcoholic hepatitis Hyponatremia Anemia Low TSH Plan: Neuro: Awake and alert. Follow neuro status. Avoid sedatives and narcotics. Continue IV thiamine. Cardiovascular: Receive 4 L fluid bolus yesterday. Continue IV fluids. Watch for hypotension. Pulmonary: Supplemental O2 as needed. GI/liver: Advance by mouth diet as tolerated. Zofran when necessary for nausea and vomiting. CT abdomen pelvis did not reveal any evidence of pancreatitis. GI consulted for elevated LFTs and nausea vomiting abdominal pain. Renal/: IV hydration, strict intake output, monitor and replete electrolytes, follow BUN/creatinine. Repeat ABG on 04/30 much improved with pH 7.32 PCO2 29.7 PO2 95.4 with bicarbonate 14.9. Metabolic acidosis appears to have resolved on chemistries this morning. ID: No antibiotics at this time. Endocrine: Low TSH noted. Awaiting CT 3 and T4 for suspected hyperthyroidism. Hyperglycemia on labs done on : was after 1 L D5NS bolus and apart from that she hasn't had no documented hyperglycemia. Doubt diabetes. Will order HbA1c. Heme: Follow CBC Prophylaxis: PPI/SCDs. Subcutaneous heparin. Early ambulation. Patient will be transferred to hospitalist service for further medical management. Awaiting GI evaluation. Follow-up on thyroid studies. Transfer out of ICU to medical floor. Fernando Helms MD May 01, 2017 07:00
[2017-05-01] MEDS: SODIUM CHLORIDE 0.9% FLUSH 10 ML FLUSH IV FLUSH SCH ×2 (08:45→20:20)
[2017-05-01] MEDS: MAGNESIUM SULFATE 1 GM PREMIX 100 ML IV SCH ×3 (08:45→10:40)
[2017-05-01 09:56] LABS: FREE T3 1.66 PG/ML (2.18-3.98); FREE T4 0.82 NG/DL (0.76-1.46)
[2017-05-01] MEDS: THIAMINE INJ 100 MG in SODIUM CHLORIDE 0.9% INJ 100 ML IV SCH (09:57)
[2017-05-01] MEDS ORDERED: PANTOPRAZOLE SODIUM 40 MG VIAL IV PUSH SCH (13:00)
[2017-05-01] MEDS: ONDANSETRON HCL 4 MG/2 ML VIAL IV PUSH PRN (13:23)
[2017-05-02] VITALS: BP 137/103; PULSE 100; RESP 16; TEMP 98.3; O2SAT 99
[2017-05-02] MEDS: D5-1/2 NS + KCL 20 MEQ INJ 1,000 ML IV SCH ×2 (02:59→08:44)
[2017-05-02] MEDS: CHLORHEXIDINE GLUCONATE 2 % 1 PACK (2 CLOTHS) TOP SCH (03:00)
[2017-05-02] MEDS: HEPARIN SODIUM - SQ 10,000 UNITS/ML VIAL SQ SCH (03:00)
[2017-05-02 04:00] VITALS: BP 121/86; PULSE 85; RESP 16; TEMP 98.6; O2SAT 100
[2017-05-02 08:00] VITALS: BP 132/98; PULSE 91; RESP 16; TEMP 99.2; O2SAT 98
[2017-05-02] MEDS: THIAMINE INJ 100 MG in SODIUM CHLORIDE 0.9% INJ 100 ML IV SCH (08:42)
[2017-05-02] MEDS: SODIUM CHLORIDE 0.9% FLUSH 10 ML FLUSH IV FLUSH SCH (08:45)
[2017-05-02 10:34] LABS: CHLORIDE 98 MEQ/L (98-107); POTASSIUM 3.2 MEQ/L (3.5-5.1); SODIUM (NA) 135 MEQ/L (136-145)
[2017-05-02 10:37] LABS: ANION GAP 9 MEQ/L (5-15); BICARBONATE 27.8 MEQ/L (21.0-32.0); BLOOD UREA NITROGEN LESS THAN 1 MG/DL (7-18)
[2017-05-02 10:40] LABS: GLOMERULAR FILTRATION RATE 124 ML/MIN (>89)
--- NOTE | 2017-05-02 10:51 | HHI.DS ---
Discharge Summary Admission Date Apr 30, 2017 at 14:16 Discharge Date: May 02, 2017 Admitting Diagnosis METABOLIC ACIDOSIS (1) Dehydration ICD Code: E86.0 - Dehydration (2) Hypokalemia ICD Code: E87.6 - Hypokalemia (3) Nausea & vomiting ICD Code: R11.2 - Nausea with vomiting, unspecified (4) Alcohol abuse ICD Code: F10.10 - Alcohol abuse, uncomplicated (5) Alcoholic ketoacidosis ICD Code: E87.2 - Acidosis Status: Acute Procedures None Brief History - From Admission This 37-year-old female presented with complaints of abdominal pain, nausea and vomiting which started at 3 AM this morning for which she was brought to the ER. Patient has a history of alcohol abuse and was admitted to Hospital in [place] in March and was told she had pancreatitis. She does not have any history of abdominal surgery. She had stopped drinking for a while but the last couple of days started drinking again. This morning around 3 AM she started having abdominal pain and vomiting. The pain she is having is fairly diffuse and goes to her back. She's had persistent vomiting. She says the pain is quite severe and persistent. She says she has not been eating well since she got out of the hospital in March. She has not been drinking until a couple of days ago. Patient was evaluated in the ER and was noted to be tachycardic with heart rate in the 130s with normal blood pressure. She underwent the CT of her abdomen pelvis which was unremarkable except for steatosis. She did have significant metabolic acidosis and positive ketones in the urine as well as elevated lactic acid. She was accepted for admission to the ICU by critical care medicine service in view of severe metabolic acidosis with ABG revealing pH of 7.08 PCO2 22 PO2 118. CBC/BMP: 05/01/17 0540 05/02/17 1005 Significant Findings Laboratory Tests Test 04/30/17 11:30 04/30/17 13:05 04/30/17 13:20 04/30/17 16:03 White Blood Count 13.1 TH/MM3 (4.0-11.0) Red Blood Count 3.84 MIL/MM3 (4.00-5.30) Mean Corpuscular Hemoglobin Concent 31.8 % (32.0-36.0) Mean Platelet Volume 6.9 FL (7.0-11.0) Neutrophils (%) (Auto) 86.6 % (16.0-70.0) Lymphocytes (%) (Auto) 4.1 % (9.0-44.0) Neutrophils # (Auto) 11.4 TH/MM3 (1.8-7.7) Lymphocytes # (Auto) 0.5 TH/MM3 (1.0-4.8) Monocytes # (Auto) 1.0 TH/MM3 (0-0.9) Urine Protein 30 mg/dL (NEG-TRACE) Urine Ketones 80 OR GREATER mg/dL (NEG) Urine Squamous Epithelial Cells 6-8 /hpf (0-5) Urine Hyaline Casts 15-19 /lpf (RARE) Blood Urea Nitrogen 5 MG/DL (7-18) Total Protein 8.9 GM/DL (6.4-8.2) Alkaline Phosphatase 150 U/L (45-117) Aspartate Amino Transf (AST/SGOT) 285 U/L (15-37) Alanine Aminotransferase (ALT/SGPT) 100 U/L (10-53) Total Bilirubin 1.2 MG/DL (0.2-1.0) Sodium Level 129 MEQ/L (136-145) Chloride Level 91 MEQ/L (98-107) Carbon Dioxide Level 7.3 MEQ/L (21.0-32.0) Anion Gap 31 MEQ/L (5-15) Thyroid Stimulating Hormone 3rd Gen 0.158 uIU/ML (0.358-3.740) B-Hydroxybutyrate 8.55 MMOL/L (0.00-0.39) Lactic Acid Level 6.2 mmol/L (0.4-2.0) Blood Gas HCO3 6 mmol/L (22-26) 15 mmol/L (22-26) Blood Gas Base Excess -22.1 mmol/L (-2-2) -9.9 mmol/L (-2-2) Arterial Blood pH 7.08 (7.380-7.420) 7.32 (7.380-7.420) Arterial Blood Partial Pressure CO2 22 mmHG (38-42) 30 mmHg (38-42) Blood Gas Hemoglobin 9.8 G/DL (12.0-16.0) 9.9 G/DL (12.0-16.0) Test 04/30/17 17:02 04/30/17 21:05 05/01/17 05:40 05/02/17 03:45 Blood Urea Nitrogen 2 MG/DL (7-18) 1 MG/DL (7-18) Random Glucose 302 MG/DL (74-106) 134 MG/DL (74-106) Calcium Level 7.1 MG/DL (8.5-10.1) 7.8 MG/DL (8.5-10.1) Sodium Level 130 MEQ/L (136-145) 135 MEQ/L (136-145) Potassium Level 3.4 MEQ/L (3.5-5.1) 3.2 MEQ/L (3.5-5.1) Chloride Level 97 MEQ/L (98-107) Estimat Glomerular Filtration Rate 88 ML/MIN (>89) Lactic Acid Level 2.1 mmol/L (0.4-2.0) Protein Corrected Calcium 7.2 MG/DL (8.5-10.1) Red Blood Count 3.14 MIL/MM3 (4.00-5.30) Hemoglobin 9.7 GM/DL (11.6-15.3) Hematocrit 29.9 % (35.0-46.0) Mean Platelet Volume 6.9 FL (7.0-11.0) Neutrophils (%) (Auto) 77.5 % (16.0-70.0) Monocytes (%) (Auto) 8.7 % (0.0-8.0) Basophils (%) (Auto) 2.1 % (0.0-2.0) Lymphocytes # (Auto) 0.9 TH/MM3 (1.0-4.8) Albumin 3.3 GM/DL (3.4-5.0) Phosphorus Level 0.8 MG/DL (2.5-4.9) Magnesium Level 1.0 MG/DL (1.5-2.5) Aspartate Amino Transf (AST/SGOT) 145 U/L (15-37) Alanine Aminotransferase (ALT/SGPT) 66 U/L (10-53) Free Triiodothyronine (T3) pg/dL 1.66 PG/ML (2.18-3.98) Test 05/02/17 10:05 Blood Urea Nitrogen LESS THAN 1 MG/DL (7-18) Random Glucose 69 MG/DL (74-106) Sodium Level 135 MEQ/L (136-145) Potassium Level 3.2 MEQ/L (3.5-5.1) PE at Discharge GENERAL: Well-nourished, well-developed patient. SKIN: Warm and dry. HEAD: Normocephalic. EYES: No scleral icterus. No injection or drainage. NECK: Supple, trachea midline. No JVD or lymphadenopathy. CARDIOVASCULAR: Regular rate and rhythm without murmurs, gallops, or rubs. RESPIRATORY: Breath sounds equal bilaterally. No accessory muscle use. GASTROINTESTINAL: Abdomen soft, non-tender, nondistended. EXTREMITIES: No cyanosis, or edema. NEUROLOGICAL: Awake, alert, and oriented x 3. Non-focal. Hospital Course The patient was initially admitted to the ICU given aggressive IV fluids, lactic acidosis and metabolic acidosis resolved. She had hypokalemia which was repleted. Abdominal pain resolved. This morning the patient has been eating well and drinking well. No abdominal pain. No nausea or vomiting. She states she started drinking again because of social stressors. She feels that she can stay away from alcohol. Patient will be discharged home today. She is advised to follow-up with her primary care physician in one week. Avoid alcohol. Pt Condition on Discharge: Stable Discharge Disposition: Discharge Home Discharge Time: <= 30 minutes Discharge Instructions DIET: Follow Instructions for: As Tolerated, No Restrictions Activities you can perform: Regular-No Restrictions Follow up Referrals: PCP Follow-up - 1 Week Continued Medications: Lamotrigine (Lamotrigine) 25 Mg Tab 25 MG PO DAILY for Control Seizures, #30 TAB 0 Refills Levothyroxine (Synthroid) 50 Mcg Tab 50 MCG PO DAILY for Thyroid, #30 TAB 0 Refills Yelena Harris MD May 02, 2017 10:51
[2017-05-02] MEDS ORDERED: MAGN500T2 PO (12:50)
[2017-05-02] MEDS ORDERED: POTA-163 PO (12:50)
[2017-05-02 17:16] LABS: HEMOGLOBIN A1a 1.1 %; HEMOGLOBIN A1b 1.3 %; HEMOGLOBIN Ao 86.1 %; HEMOGLOBIN F 0.4 %; HEMOGLOBIN LA1C 2.3 %; HEMOGLOBIN P3 3.5 %
--- NOTE | 2017-05-02 19:36 | EKG ---
Date Performed: 05/01/2017 Time Performed: 16:33:52 PTAGE: 37 years EKG: Sinus rhythm NORMAL ECG NO PREVIOUS TRACING DOCTOR: Macario Finnegan Interpretating Date/Time 05/02/2017 19:32:55
== END 2017-05-02 13:12 | disposition home or self-care (01) | DRG 641 ==
LOC: PHED 11:08 → PHEDA 14:16 → PHICU 15:55 → PH3B 05-01 08:55
PROVIDERS: ADMIT Family Medicine; ATTEND Family Medicine
DX: E87.2 Acidosis (principal); E86.0 Dehydration; K70.10 Alcoholic hepatitis without ascites; E87.1 Hypo-osmolality and hyponatremia; Z68.1 Body mass index [BMI] 19.9 or less, adult; F10.288 Alcohol dependence with other alcohol-induced disorder; E87.6 Hypokalemia; T73.0XXA Starvation, initial encounter; K29.20 Alcoholic gastritis without bleeding; D64.9 Anemia, unspecified; R73.9 Hyperglycemia, unspecified; E03.9 Hypothyroidism, unspecified; Y90.9 Presence of alcohol in blood, level not specified; Z88.5 Allergy status to narcotic agent
CPT/HCPCS: 36600; 74177; 80048; 80053; 80307; 81001; 82010; 82805; 83036; 83605; 83690; 83735; 84100; 84155; 84439; 84443; 84481; 85025; 87641; 93005; 96361; 96365; 96368; 96375; 96376; C9113; J0780; J1170; J1644; J2060; J2405; J3411; J3475; J3480; J7030; J7042; J7050; Q9967